=== PATIENT | female | born 1980 | race Hispanic/Latino ===

== ENCOUNTER 2017-08-08 09:49 | Emergency (ER) | payer MEDICAID ==
[2017-08-08 10:42] LABS: APPEARANCE,URINE Cloudy (CLEAR); BILIRUBIN,URINE Negative (NEGATIVE); COLOR,URINE Yellow (YELLOW); GLUCOSE, URINE (UA) Negative (NEGATIVE); KETONES,URINE Negative (NEGATIVE); LEUKOCYTE ESTERASE ,URINE Moderate (NEGATIVE); NITRATE,URINE Negative (NEGATIVE); OCCULT BLOOD,URINE Negative (NEGATIVE); PROTEIN,URINE Negative (NEGATIVE); UROBILINOGEN,URINE 0.2 mg/dL (0.2-1.0)
[2017-08-08 10:48] LABS: BACTERIA,URINE Few /HPF (None Seen); MUCUS,URINE Few LPF (None Seen); SPERM,URINE Few /HPF (None Seen); SQUAMOUS EPITHELIAL CELL,UR Rare /LPF (0-2)
[2017-08-08] MEDS ORDERED: KETOROLAC TROMETHAMINE 30MG/ML ONE (10:56)
== END 2017-08-08 12:45 | disposition home or self-care (01) ==
LOC: EDH 09:49
DX: N23 Unspecified renal colic (principal); G43.909 Migraine, unspecified, not intractable, without status migrainosus; Z72.0 Tobacco use; Z88.5 Allergy status to narcotic agent
CPT/HCPCS: 76770; 81001; 81025; 96372; 99284; J1885